=== PATIENT | male | born 1965 | race Caucasian/White ===

== ENCOUNTER → 2022-02-27 | Emergency (ER) | payer OTHER ==
[~2022-02-27] VITALS: Ht 157.5 cm; Wt 54.4 kg
[~2022-02-27] MED LIST: NAPR-690 PO
--- NOTE | 2022-02-27 18:03 | NUR ---
Patient triaged and placed in waiting room. VSS and patient appears in no acute distress at this time. Accompanied by SELF, awaiting available bed, and MD notified of need for MSE.
[2022-02-27 18:05] VITALS: BP_SYST 111
== END | disposition home or self-care (01) ==
LOC: SED 18:03
DX: S90.112A Contusion of left great toe without damage to nail, initial encounter (principal); W26.8XXA Contact with other sharp object(s), not elsewhere classified, initial encounter; Y93.89 Activity, other specified; Y92.89 Other specified places as the place of occurrence of the external cause; Y99.8 Other external cause status
CPT/HCPCS: 99283